=== PATIENT | female | born 1950 | race Caucasian/White ===

== ENCOUNTER → 2021-12-01 09:35 | Outpatient (BNVA) | payer MEDICARE, OTHER, SELFPAY | PROVIDERS: Family Provider Nurse Practitioner; PCP Nurse Practitioner Family; Visit Provider Nurse Practitioner | DX: R39.9 Unspecified symptoms and signs involving the genitourinary system (principal); G47.00 Insomnia, unspecified | CPT/HCPCS: 87086 ==

== ENCOUNTER 2022-08-20 12:47 | Outpatient (CLI) | payer MEDICARE, OTHER, SELFPAY ==
--- NOTE | 2022-08-20 12:56 | USCV_ITS ---
Leny Alexandre Age: 71 Gender: F : 1950 Exam Date: 08/20/2022 13:32 Ordering Phys: Ulises Soto MD Technologist: Exam Location: [facility] [place]ication: chest pain BP: 125 / 80 HR: 78 Rhythm: Sinus Technical Quality: Adequate MEASUREMENTS (Male / Female) Normal Values 2D ECHO LV Diastolic Diameter PLAX 3.7 cm 4.2 - 5.9 / 3.9 - 5.3 cm LV Systolic Diameter PLAX 2.7 cm IVS Diastolic Thickness 1.7 cm 0.6 - 1.0 / 0.6 - 0.9 cm IVS Systolic Thickness 1.8 cm LVPW Diastolic Thickness 1.5 cm 0.6 - 1.0 / 0.6 - 0.9 cm LVPW Systolic Thickness 1.8 cm LVOT Diameter 2.0 cm LV Ejection Fraction 2D Teich 51.6 % LV Ejection Fraction MOD 2C 62.3 % LV Ejection Fraction 2C AL 61.7 % LA Diameter 3.8 cm M-MODE LV Diastolic Diameter MM 5.4 cm 4.2 - 5.9 / 3.9 - 5.3 cm LV Systolic Diameter MM 3.3 cm LV Ejection Fraction MM Teich 68.3 % IVS Diastolic Thickness MM 1.0 cm 0.6 - 1.0 / 0.6 - 0.9 cm IVS Systolic Thickness MM 1.3 cm LVPW Diastolic Thickness MM 1.4 cm 0.6 - 1.0 / 0.6 - 0.9 cm LVPW Systolic Thickness MM 1.8 cm RV Diastolic Diameter MM 1.6 cm Aortic Annulus Diameter 3.9 cm LA Ao Ratio MM 1.1 MV E Point Septal Separation 0.9 cm DOPPLER AV Peak Velocity 300.8 cm/s LVOT Peak Velocity 111.0 cm/s AV Area Cont Eq vti 1.3 cm squared AV Area Cont Eq pk 1.2 cm squared MV Area PHT 3.4 cm squared Mitral E to A Ratio 0.8 MV E' Velocity 80.5 cm/s Mitral E to MV E' Ratio 1.6 Mitral E to LV E' Lateral Ratio 0.8 Mitral E to LV E' Septal Ratio 10.0 TR Peak Velocity 215.7 cm/s TR Peak Gradient 18.6 mmHg TV Peak E Velocity 110.0 cm/s Right Atrial Pressure 3.0 mmHg Pulmonary Artery Systolic Pressu 21.6 mmHg RV Acceleration Time 0.1 s FINDINGS Left Ventricle Normal left ventricular size, systolic function and modertaely wall thickness, with no regional wall motion abnormalities. Left ventricular ejection fraction is estimated at 60 %. Grade I diastolic dysfunction (abnormal relaxation filling pattern), normal to mildly elevated filling pressures. Right Ventricle Normal right ventricular size and systolic function. RVSP could not be calculated due to incomplete tricuspid regurgitation velocity profile. Right Atrium Normal right atrial size. Left Atrium Mildly increased left atrial size. Mitral Valve Moderate mitral annular calcification. Thickened mitral valve. No mitral valve stenosis. Trace mitral valve regurgitation. Aortic Valve Mildly thickened and calcified trileaflet aortic valve. Mild aortic valve stenosis, peak velocity 2.6 m/s, peak gradient 27 mm Hg, mean gradient 13 mmHg, FATOUMATA 1.4 cm squared. Mild aortic valve regurgitation. Tricuspid Valve Structurally normal tricuspid valve. No tricuspid valve stenosis. Trace tricuspid valve regurgitation. Pulmonic Valve Structurally normal pulmonic valve. No pulmonary valve stenosis. Trace pulmonary valve regurgitation. Pericardium No pericardial effusion. Aorta Normal size aortic root and proximal ascending aorta. IVC Inferior vena cava not visualized. CONCLUSIONS 1. Normal left ventricular size, systolic function and modertaely wall thickness, with no regional wall motion abnormalities. Left ventricular ejection fraction is estimated at 60 %. Grade I diastolic dysfunction (abnormal relaxation filling pattern), normal to mildly elevated filling pressures. 2. Mild aortic valve stenosis, peak velocity 2.6 m/s, peak gradient 27 mm Hg, mean gradient 13 mmHg, FATOUMATA 1.4 cm squared. Mild aortic valve regurgitation. 3. No prior similar studies to compare. Ana Ritchie MD (Electronically Signed) Final Date: 25 August 2022 12:30 S
== END 2022-08-20 12:48 | disposition home or self-care (01) ==
PROVIDERS: PCP Internal Medicine Cardiovascular Disease; Visit Provider Internal Medicine Cardiovascular Disease
DX: I35.0 Nonrheumatic aortic (valve) stenosis (principal); I35.1 Nonrheumatic aortic (valve) insufficiency
CPT/HCPCS: 93306

== ENCOUNTER → 2023-07-05 13:37 | Outpatient (BNVA) | payer MEDICARE, OTHER, SELFPAY | PROVIDERS: PCP Nurse Practitioner Family; Visit Provider Nurse Practitioner Family | DX: H81.09 Meniere's disease, unspecified ear (principal); R42 Dizziness and giddiness; G47.00 Insomnia, unspecified; I10 Essential (primary) hypertension; I25.10 Atherosclerotic heart disease of native coronary artery without angina pectoris | CPT/HCPCS: 93005 ==

== ENCOUNTER → 2023-07-06 09:33 | Outpatient (BNVA) | payer MEDICARE, OTHER, SELFPAY | PROVIDERS: PCP Nurse Practitioner Family; Visit Provider Nurse Practitioner Family | DX: H81.09 Meniere's disease, unspecified ear (principal) | CPT/HCPCS: 93005 ==

== ENCOUNTER → 2023-10-11 09:42 | Outpatient (BNVA) | payer MEDICARE, OTHER, SELFPAY | PROVIDERS: PCP Nurse Practitioner Family; Visit Provider Nurse Practitioner Family | DX: N39.0 Urinary tract infection, site not specified (principal); R30.9 Painful micturition, unspecified | CPT/HCPCS: 81000; 81015 ==

== ENCOUNTER → 2023-10-25 15:43 | Outpatient (BNVA) | payer MEDICARE, SELFPAY | PROVIDERS: PCP Nurse Practitioner Family; Visit Provider Nurse Practitioner Family | DX: I10 Essential (primary) hypertension (principal); E11.9 Type 2 diabetes mellitus without complications; N30.00 Acute cystitis without hematuria; Z79.899 Other long term (current) drug therapy | CPT/HCPCS: 81003; 87086 ==

== ENCOUNTER → 2023-12-01 08:39 | Outpatient (BNVA) | payer MEDICARE, SELFPAY | PROVIDERS: PCP Nurse Practitioner Family; Visit Provider Nurse Practitioner Family | DX: E55.9 Vitamin D deficiency, unspecified (principal); I10 Essential (primary) hypertension; E11.9 Type 2 diabetes mellitus without complications; N30.00 Acute cystitis without hematuria; I25.10 Atherosclerotic heart disease of native coronary artery without angina pectoris; G47.00 Insomnia, unspecified; Z79.899 Other long term (current) drug therapy | CPT/HCPCS: 80053; 80061; 82306; 83036; 83721; 84443; 85025 ==

== ENCOUNTER → 2024-02-24 13:39 | Outpatient (BNVA) | payer MEDICARE, SELFPAY | PROVIDERS: PCP Nurse Practitioner Family; Visit Provider Nurse Practitioner Family | DX: N39.0 Urinary tract infection, site not specified (principal) | CPT/HCPCS: 81000 ==

== ENCOUNTER → 2024-02-29 09:47 | Outpatient (BNVA) | payer MEDICARE, SELFPAY | PROVIDERS: PCP Nurse Practitioner Family; Visit Provider Nurse Practitioner Family | DX: N39.0 Urinary tract infection, site not specified (principal) | CPT/HCPCS: 81000 ==

== ENCOUNTER → 2024-03-09 08:57 | Outpatient (BNVA) | payer MEDICARE, SELFPAY | PROVIDERS: PCP Nurse Practitioner Family; Visit Provider Nurse Practitioner Family | DX: I10 Essential (primary) hypertension (principal); N39.0 Urinary tract infection, site not specified; I25.10 Atherosclerotic heart disease of native coronary artery without angina pectoris; E11.69 Type 2 diabetes mellitus with other specified complication; E55.9 Vitamin D deficiency, unspecified; R31.9 Hematuria, unspecified; Z79.899 Other long term (current) drug therapy | CPT/HCPCS: 74018; 81003; 87086 ==

== ENCOUNTER → 2024-03-20 12:12 | Outpatient (BNVA) | payer MEDICARE, SELFPAY | PROVIDERS: PCP Nurse Practitioner Family; Visit Provider Nurse Practitioner Family | DX: G47.00 Insomnia, unspecified (principal); I10 Essential (primary) hypertension; I25.10 Atherosclerotic heart disease of native coronary artery without angina pectoris; E11.69 Type 2 diabetes mellitus with other specified complication; N39.0 Urinary tract infection, site not specified; Z79.899 Other long term (current) drug therapy; E55.9 Vitamin D deficiency, unspecified | CPT/HCPCS: 80053; 80061; 82306; 83036; 83721; 84443; 85025 ==

== ENCOUNTER → 2024-03-22 14:12 | Outpatient (BNVA) | payer MEDICARE, SELFPAY | PROVIDERS: PCP Nurse Practitioner Family; Visit Provider Nurse Practitioner Family | DX: K92.1 Melena (principal) | CPT/HCPCS: 82270 ==

== ENCOUNTER → 2024-04-09 09:43 | Outpatient (BNVA) | payer MEDICARE, SELFPAY | PROVIDERS: PCP Nurse Practitioner Family; Visit Provider Surgery | DX: K59.04 Chronic idiopathic constipation (principal); K21.9 Gastro-esophageal reflux disease without esophagitis; R11.0 Nausea; R10.13 Epigastric pain | CPT/HCPCS: 99204 ==

== ENCOUNTER 2024-04-18 07:58 | Day surgery (SDC) | payer MEDICARE, SELFPAY ==
[2024-04-18 08:22] VITALS: BMI 30.8
[2024-04-18 08:29] VITALS: BP 161/101; PULSE 74; RESP 18; TEMP 36.4; O2SAT 95; BMI 30.8
[2024-04-18] MEDS: sodium chloride 0.9% 500 ML 15 ML IV (08:43)
--- NOTE | 2024-04-18 08:57 | ANES.PREANE2 ---
Pre-Anesthetic Assessment Height/Weight: Height 1.78 m Weight 97.522 kg Temp Pulse Resp BP Pulse Ox O2 Del Method 97.5 F L 74 18 161/101 95 Room Air 04/18/24 08:29 04/18/24 08:29 04/18/24 08:29 04/18/24 08:29 04/18/24 08:29 04/18/24 08:29 Preop Diagnosis: screening Operation Date: 04/18/24 09:15 Proposed Procedures p EGD 15027, 03267, G0105, K21.9, R11.0, R10.13, K59.04(Not Applicable) - Pancho Aguirre DO s Colonoscopy(Not Applicable) - Pancho Aguirre DO Familial anesthetic complications: none Was Beta Odilon taken within 24 hours: Yes Was Clonidine taken within 24 hours: N/A Last intake: Intake Last Liquid Date 04/17/24 Last Liquid Time 20:00 Last Solid Date 04/16/24 Last Solid Time 15:30 Social No alcohol and No tobacco Exam alert, oriented x 3, clear to auscultation bilaterally and regular rate & rhythm Airway Submandibular: within normal limits Cervical ROM: within normal limits Mallampati: Class II Dentition: full History/ROS No significant history except as noted and No significant complaints Pulmonary Exertional Dyspnea CV/HEM Coronary Artery Disease, Hypertension and Myocardial Infarction CABG 3 years ago None reported Hepatic None reported GI Gastroesophageal Reflux Disease Metabolic Diabetes Mellitus [facility] [place] None reported Neuropsych Anxiety and Depression Anesthetic Plan ASA status: 3 Anesthesia: MAC Risk of > 500 ml blood loss (7ml/kg in children): No Medications/Allergies Home Medications ?Medication ?Instructions ?Recorded ?Confirmed ?Last Taken ?Type trazodone 50 mg tablet 150 mg (3 x 50 mg) PO .hs #270 tabs 08/24/23 04/17/24 04/17/24 Rx cetirizine 10 mg tablet (Zyrtec) 10 mg PO DAILY PRN Allergic 01/09/24 04/17/24 04/17/24 History Symptoms dicyclomine 10 mg capsule 30 mg (3 x 10 mg) PO TID PRN 01/23/24 04/17/24 04/17/24 Rx abdominal pain #90 caps metformin 500 mg tablet 1,000 mg (2 x 500 mg) PO BID #360 12/04/1604/17/24 04/17/24 Rx tabs atorvastatin 80 mg tablet 80 mg PO DAILY #90 tabs 02/07/24 04/17/24 04/17/24 Rx carvedilol 12.5 mg tablet 12.5 mg PO DAILY #30 tabs 02/07/24 04/18/24 04/18/24 Rx 0600 venlafaxine 75 mg tablet 75 mg PO BID 90 days #180 tabs 03/09/24 04/17/24 04/17/24 Rx alprazolam 0.5 mg tablet 0.5 mg PO .hs #30 tabs 03/25/24 04/17/24 04/16/24 Rx pantoprazole 40 mg tablet,delayed 40 mg PO BID 6 weeks #84 tabs 04/09/24 04/17/24 04/17/24 Rx release (Protonix) Allergies Allergy/AdvReac Type Severity Reaction Status Date / Time No Known Allergies Allergy Verified 04/17/24 11:02 Current Medications Generic Name Dose Route Start Last Admin Trade Name Freq PRN Reason Stop Dose Admin Sodium Chloride 500 mls @ 15 mls/hr 04/18/24 08:11 04/18/24 08:43 Sodium Chloride 0.9% IV 04/19/24 08:10 15 mls/hr .Q24H PRN Administration COLONOSCOPY FLUIDS PFSH Anesthesia Medical History Chronic nausea GERD (gastroesophageal reflux disease) Black stools Chronic idiopathic constipation Abdominal bloating Vitamin D deficiency Acute bacterial sinusitis Back pain Anxiety and depression Breast cancer screening by mammogram Constipation Enrolled in chronic care management Medication management Urinary tract infection Breast cancer Hypertension Type 2 diabetes mellitus Surgical History S/P CABG x 5 Status post knee replacement Bilateral Status post left mastectomy Status post angioplasty with stent Family History Other Cancer Social History Smoking and tobacco/nicotine status: never used tobacco/nicotine Alcohol intake: never Substance/Drug Use: never Data Anesthesia Cardiac Studies: Echocardiogram 08/20/22
--- NOTE | 2024-04-18 09:00 | P.ANESASSM_ITS ---
Pre-Anesthetic Assessment Height/Weight: Height 1.78 m Weight 97.522 kg Temp Pulse Resp BP Pulse Ox O2 Del Method 97.5 F L 74 18 161/101 95 Room Air 04/18/24 08:29 04/18/24 08:29 04/18/24 08:29 04/18/24 08:29 04/18/24 08:29 04/18/24 08:29 Preop Diagnosis: screening Operation Date: 04/18/24 09:15 Proposed Procedures p EGD 32439, 94807, G0105, K21.9, R11.0, R10.13, K59.04(Not Applicable) - Pancho Aguirre DO s Colonoscopy(Not Applicable) - Pancho Aguirre DO Familial anesthetic complications: none Was Beta Odilon taken within 24 hours: Yes Was Clonidine taken within 24 hours: N/A Last intake: Intake Last Liquid Date 04/17/24 Last Liquid Time 20:00 Last Solid Date 04/16/24 Last Solid Time 15:30 Social No alcohol and No tobacco Exam alert, oriented x 3, clear to auscultation bilaterally and regular rate & rhythm Airway Submandibular: within normal limits Cervical ROM: within normal limits Dentition: full History/ROS No significant history except as noted and No significant complaints Pulmonary Exertional Dyspnea CV/HEM Coronary Artery Disease, Hypertension and Myocardial Infarction None reported Hepatic None reported GI Gastroesophageal Reflux Disease Metabolic Diabetes Mellitus [facility] [place] None reported Neuropsych Anxiety and Depression Anesthetic Plan ASA status: 3 Anesthesia: MAC Risk of > 500 ml blood loss (7ml/kg in children): No Medications/Allergies Home Medications ?Medication ?Instructions ?Recorded ?Confirmed ?Last Taken ?Type trazodone 50 mg tablet 150 mg (3 x 50 mg) PO .hs #2 70 tabs 08/24/23 04/17/24 04/17/24 Rx cetirizine 10 mg tablet (Zyrtec) 10 mg PO DAILY PRN Al lergic 01/09/24 04/17/24 04/17/24 History Symptoms dicyclomine 10 mg capsule 30 mg (3 x 10 mg) PO TID PRN 01/23/24 04/17/24 04/17/24 Rx abdominal pain #90 caps metformin 500 mg tablet 1,000 mg (2 x 500 mg) PO BID #360 01/23/24 04/17/24 04/17/24 Rx tabs atorvastatin 80 mg tablet 80 mg PO DAILY #90 tabs 01/2104/17/24 04/17/24 Rx carvedilol 12.5 mg tablet 12.5 mg PO DAILY #30 tabs 04/18/24 04/18/24 Rx 0600 venlafaxine 75 mg tablet 75 mg PO BID 90 days #180 ta bs 03/09/24 04/17/24 04/17/24 Rx alprazolam 0.5 mg tablet 0.5 mg PO .hs #30 tabs 03/2504/17/24 04/16/24 Rx pantoprazole 40 mg tablet,delayed 40 mg PO BID 6 weeks #84 tabs 04/09/24 04/17/24 04/17/24 Rx release (Protonix) Allergies Allergy/AdvReac Type Severity Reaction Status Date / Time No Known Allergies Allergy Verified 04/17/24 11:02 Current Medications Generic Name Dose Route Start Last Admin Trade Name Freq PRN Reason Stop Dose Admin Sodium Chloride 500 mls @ 15 mls/hr 04/18/24 08:11 04/18/24 08:43 Sodium Chloride 0.9% IV 04/19/24 08:10 15 mls/hr .Q24H PRN Administration COLONOSCOPY FLUIDS PFSH Anesthesia Medical History Chronic nausea GERD (gastroesophageal reflux disease) Black stools Chronic idiopathic constipation Abdominal bloating Vitamin D deficiency Acute bacterial sinusitis Back pain Anxiety and depression Breast cancer screening by mammogram Constipation Enrolled in chronic care management Medication management Urinary tract infection Breast cancer Hypertension Type 2 diabetes mellitus Surgical History S/P CABG x 5 Status post knee replacement Bilateral Status post left mastectomy Status post angioplasty with stent Family History Other Cancer Social History Smoking and tobacco/nicotine status: never used tobacco/nicotine Alcohol intake: never Substance/Drug Use: never Data Anesthesia Cardiac Studies: Echocardiogram 08/20/22
[2024-04-18 09:07] LABS: Glucose Point of Care 120 mg/dL (70-110)
--- NOTE | 2024-04-18 09:43 | W.PM.OPSUD ---
Surgery/Procedure H&P Update DATE OF PROCEDURE: April 18, 2024 DATE H&P PERFORMED: 04/09/24 H&P UPDATE INFORMATION: I have reviewed H&P completed within last 30 days, I have examined patient prior to procedure and No changes to prior documentation PREOP DIAGNOSIS: screening PLANNED PROCEDURE: Operation Date: 04/18/24 09:15 Proposed Procedures p EGD 11329, 59585, G0105, K21.9, R11.0, R10.13, K59.04(Not Applicable) - DO addie Jimenez Colonoscopy(Not Applicable) - Pancho Aguirre DO
[2024-04-18 10:08] VITALS: BP 178/84; PULSE 64; RESP 18; TEMP 36.3; O2SAT 95
[2024-04-18 10:19] VITALS: BP 172/90; PULSE 64; RESP 18; O2SAT 94
[2024-04-18 10:29] VITALS: BP 143/89; PULSE 65; RESP 16; O2SAT 95
--- NOTE | 2024-04-18 10:50 | ANE.PACU2 ---
Inpatient post-anesthesia follow up: Airway intact: Yes Vital signs: Temperature 97.3 F Pulse Rate 65 Respiratory Rate 16 Blood Pressure 143/89 Pulse Oximetry 95 Oxygen Delivery Me thod Room Air Oxygen Flow Rate Fraction of Inspir ed Oxygen Hydration adequate: Yes Nausea and vomiting: No Pain level: 1 Mental status: Baseline
== END 2024-04-18 10:50 | disposition home or self-care (01) ==
PROVIDERS: PCP Nurse Practitioner Family; Visit Provider Surgery
PROC: 0DJ08ZZ Inspection of Upper Intestinal Tract, Via Natural or Artificial Opening Endoscopic (ICD-10-PCS; principal; 2024-04-18 09:15)
PROC: 0DJD8ZZ Inspection of Lower Intestinal Tract, Via Natural or Artificial Opening Endoscopic (ICD-10-PCS; CPT 45378; 2024-04-18 09:15)
DX: Z12.11 Encounter for screening for malignant neoplasm of colon (principal); K64.8 Other hemorrhoids; K57.30 Diverticulosis of large intestine without perforation or abscess without bleeding; K63.89 Other specified diseases of intestine; K29.50 Unspecified chronic gastritis without bleeding; K21.9 Gastro-esophageal reflux disease without esophagitis; R11.0 Nausea; K59.04 Chronic idiopathic constipation; I25.10 Atherosclerotic heart disease of native coronary artery without angina pectoris; I10 Essential (primary) hypertension; I25.2 Old myocardial infarction; E11.9 Type 2 diabetes mellitus without complications; F41.9 Anxiety disorder, unspecified; F32.A Depression, unspecified; Z79.899 Other long term (current) drug therapy; Z95.1 Presence of aortocoronary bypass graft; Z95.5 Presence of coronary angioplasty implant and graft; Z85.3 Personal history of malignant neoplasm of breast
CPT/HCPCS: 36416; 43239; 45385; 82962; 88305; 88342; J2704; J7040

== ENCOUNTER → 2024-05-03 08:31 | Outpatient (BNVA) | payer MEDICARE, SELFPAY | PROVIDERS: PCP Nurse Practitioner Family; Visit Provider Nurse Practitioner Family | DX: R30.0 Dysuria (principal) | CPT/HCPCS: 81000 ==

== ENCOUNTER → 2024-05-09 14:04 | Outpatient (BNVA) | payer MEDICARE, SELFPAY | PROVIDERS: PCP Nurse Practitioner Family; Visit Provider Surgery | DX: Z09 Encounter for follow-up examination after completed treatment for conditions other than malignant neoplasm (principal) | CPT/HCPCS: 99212 ==

== ENCOUNTER → 2024-06-12 09:39 | Outpatient (BNVA) | payer MEDICARE, SELFPAY | PROVIDERS: PCP Nurse Practitioner Family; Visit Provider Nurse Practitioner Family | DX: R10.9 Unspecified abdominal pain (principal) | CPT/HCPCS: 81003 ==

== ENCOUNTER → 2024-09-05 10:45 | Outpatient (BNVA) | payer MEDICARE, SELFPAY | PROVIDERS: PCP Nurse Practitioner Family; Visit Provider Nurse Practitioner Family | DX: N30.00 Acute cystitis without hematuria (principal) | CPT/HCPCS: 81003 ==

== ENCOUNTER → 2024-12-12 10:00 | Outpatient (BNVA) | payer MEDICARE, SELFPAY | PROVIDERS: PCP Nurse Practitioner Family; Visit Provider Nurse Practitioner Family | DX: I10 Essential (primary) hypertension (principal); E78.2 Mixed hyperlipidemia; E55.9 Vitamin D deficiency, unspecified; E11.69 Type 2 diabetes mellitus with other specified complication; N30.00 Acute cystitis without hematuria; R53.83 Other fatigue; D64.9 Anemia, unspecified; Z79.899 Other long term (current) drug therapy | CPT/HCPCS: 80053; 80061; 81003; 82306; 82607; 82728; 82746; 83036; 83550; 84443; 85025; 87086 ==